=== PATIENT | male | born 1995 | race Caucasian/White ===

== ENCOUNTER 2021-01-07 20:33 | Observation (INO) | payer OTHER, SELFPAY ==
[2021-01-07] VITALS (10 sets, daily range): BP systolic 134–167; BP diastolic 83–102; PULSE 86–115; RESP 17–19; TEMP 36.7–36.8; O2SAT 96–100
--- NOTE | ~2021-01-07 | CT_ITS ---
EXAMINATION: CT abdomen pelvis w con INDICATION: Epigastric pain TECHNIQUE: Computed tomographic images of the abdomen and pelvis were obtained after the administrati on of 100 cc of Omnipaque 350 intravenous contrast. The dose-length product (DLP) was 1730.56 mGy-cm. Automated exposure control and iterative reconstruction technique were employed. COMPARISON: None available FINDINGS: Minimal dependent atelectasis is present in the lung bases. The heart size is normal. The l iver is diffusely low in attenuation when compared with the spleen, consistent with hepatic steatosis . The spleen, pancreas, gallbladder, and adrenal glands are normal. There is a moderate volume of per ipancreatic fluid. Fluid is also seen along the second portion of the duodenum. The kidneys are unrem arkable. No pathologically enlarged abdominal or pelvic lymph nodes are identified. There is no free intraperitoneal gas or evidence of bowel obstruction. There are changes of anterior and posterior fus ion at L5-S1. IMPRESSION: 1. Moderate volume of peripancreatic retroperitoneal fluid, consistent with acute pancreatitis. Reviewed, dictated and finalized at location A. IMPRESSION: 1. Moderate volume of peripancreatic retroperitoneal fluid, consistent with acu te pancreatitis.
--- NOTE | ~2021-01-07 | US_ITS ---
EXAMINATION: US abdomen limited DATE: 01/09/2021 10:05 INDICATION: Pancreatitis, epigastric abdominal pain TECHNIQUE: Multiple grayscale and Doppler ultrasound images of the abdomen were obtained. COMPARISON: None available FINDINGS: Bowel gas obscures visualization of the pancreas. The visualized portions of the pancreas a re unremarkable. The liver demonstrates increased echogenicity, heterogenous echotexture, and decreas ed through transmission. No surface nodularity. Normal hepatopetal flow in the main portal vein. The gallbladder is normal with no abnormal wall thickening, pericholecystic fluid or stones. The normal c ommon bile duct measures 5 mm. There was no sonographic Flowers sign although sensitivity can be decre ased by pain medication. IMPRESSION: 1. Diffuse hepatic steatosis. Reviewed, dictated and finalized at location A.
[2021-01-07 21:10] LABS: Hematocrit 50.5 % (42.0-52.0); Hemoglobin 15.9 g/dL (14.0-18.0); Mean Corpuscular HGB Conc 31.5 g/dl (32-36); Mean Corpuscular Hemoglobin 24.9 pg (26-34); Mean Corpuscular Volume 79.2 fl (80-100); Mean Platelet Volume 10.4 fl (7.4-10.4); Platelet Count Result 442 k/mm3 (150-375); Red Blood Count 6.38 M/mm3 (4.6-6.20); Red Cell Distribution Width 15.2 % (11.5-14.5); White Blood Count 20.3 K/mm3 (4.5-10.0)
[2021-01-07 21:13] LABS: Add Urine Microscopic? NO; Appearance Urine Clear (Clear); Bilirubin Urine Negative (Negative); Blood Urine Negative (Negative); Color Urine Yellow (Yellow); Glucose Urine UA Negative (Negative); Ketones Urine Negative (Negative); Leukocyte Esterase Ur Negative LEU/UL (Negative); Nitrate Urine Negative (Negative); Protein Urine Negative (Negative); Specific Grav Ur 1.011 (1.001-1.035); Urobilinogen Urine Negative mg/dL (<2.0)
[2021-01-07 21:29] LABS: Eosinophils Percent Manual 1 % (0-4); Lymphocytes Absolute Manual 4.87 K/mm3 (1.1-4.5); Monocytes Absolute Manual 1.42 K/mm3 (0.1-0.90); Monocytes Percent Manual 7 % (3-9); Neutrophils Percent Manual 68 % (46-73); Platelet Estimate Increased (Adequate); Total Cells Counted 100
[2021-01-07 21:30] LABS: Anisocytosis 1+ (NORMAL); Hypochromasia 1+ (NORMAL)
[2021-01-07] MEDS: MORPHINE SULFATE (*CRX) 4 MG/ML INJ IV PUSH (21:35)
[2021-01-07] MEDS: SODIUM CHLORIDE 0.9% IV 1,000 ML 999 ML IV CONT ×2 (21:35→22:37)
[2021-01-07] MEDS: ONDANSETRON INJ 4 MG/2 ML VIAL IV PUSH (21:35)
[2021-01-07 21:39] LABS: Alanine Aminotransferase 55 U/L (4-50); Albumin Level 4.3 g/dL (3.5-5.1); Alkaline Phosphatase 62 U/L (38-126); Anion Gap 10 mmol/L (8-16); Aspartate Amino Transferase 36 U/L (17-59); Bilirubin,Total 0.4 mg/dL (0.2-1.3); Blood Urea Nitrogen 18 mg/dL (9-20); Calcium 9.3 mg/dL (8.4-10.2); Carbon Dioxide 27 mmol/L (22-30); Chloride 101 mmol/L (98-107); Estimated CRCL calculation 128 ml/min; Estimated Glomerular Filt Rate > 60; Glucose 120 mg/dL (75-110); Potassium 4.4 mmol/L (3.4-5.0); Sodium 138 mmol/L (137-145)
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
[2021-01-07 21:51] LABS: Lipase 2051 U/L (23-300)
[2021-01-07] MEDS: HYDROmorphone HCL INJ (*CRX) 1 MG/ML SYR IV PUSH (22:37)
[2021-01-08 00:05] VITALS: BP 153/88; PULSE 92; RESP 18; TEMP 36.4; O2SAT 100; BMI 40.3
--- NOTE | 2021-01-08 00:07 | ADMGEN ---
This patient, Joshua Henry, was admitted to [facility] Surg Room 303-01. Patient/family oriented to hospital policies and general routines including ID bracelet, bed and alarms, visiting hours, pain management, procedures, bathroom and other care routines, personal items, smoking policy, room service/diet, and visiting hours. Information on how to activate the Rapid Response Team has been discussed. Patient/Family are encouraged to report perceived risks to care and to ask questions if they do not understand what they are told or what they should do.
[2021-01-08] MEDS: SODIUM CHLORIDE 0.9% IV 1,000 ML 200 ML IV CONT ×5 (00:29→21:25)
[2021-01-08] MEDS: MORPHINE SULFATE (*CRX) 4 MG/ML INJ IV PUSH (00:30)
[2021-01-08] MEDS: HYDROmorphone HCL INJ (*CRX) 1 MG/ML SYR IV PUSH (03:46)
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
[2021-01-08] MEDS: METOPROLOL TARTRATE INJ 5 MG/5 ML VIAL IV PUSH ×2 (05:55→10:55)
[2021-01-08 06:00] VITALS: BP 146/74; PULSE 81; RESP 18; TEMP 37.1; O2SAT 99
[2021-01-08 06:14] LABS: Hemoglobin 13.6 g/dL (14.0-18.0); Mean Corpuscular HGB Conc 31.6 g/dl (32-36); Mean Corpuscular Volume 78.9 fl (80-100); Mean Platelet Volume 10.4 fl (7.4-10.4); Platelet Count Result 362 k/mm3 (150-375); Red Blood Count 5.45 M/mm3 (4.6-6.20); Red Cell Distribution Width 14.2 % (11.5-14.5); White Blood Count 12.9 K/mm3 (4.5-10.0)
[2021-01-08 06:27] LABS: Cholesterol 151 mg/dL (0-200); HDL Direct 29 mg/dL; Triglycerides 96 mg/dL (<150)
[2021-01-08 06:28] LABS: Alanine Aminotransferase 43 U/L (4-50); Albumin Level 3.8 g/dL (3.5-5.1); Alkaline Phosphatase 56 U/L (38-126); Anion Gap 7 mmol/L (8-16); Aspartate Amino Transferase 26 U/L (17-59); Bilirubin,Total 0.5 mg/dL (0.2-1.3); Blood Urea Nitrogen 14 mg/dL (9-20); Calcium 8.4 mg/dL (8.4-10.2); Carbon Dioxide 27 mmol/L (22-30); Chloride 104 mmol/L (98-107); Estimated CRCL calculation 140 ml/min; Estimated Glomerular Filt Rate > 60; Glucose 109 mg/dL (75-110); Lipase 954 U/L (23-300); Potassium 4.1 mmol/L (3.4-5.0); Sodium 138 mmol/L (137-145)
[2021-01-08 06:30] LABS: Triglycerides 98 mg/dL (<150)
[2021-01-08 06:38] LABS: LDL Cholesterol Direct 100 mg/dL
[2021-01-08 07:54] VITALS: O2SAT 93
[2021-01-08] MEDS: ENOXAPARIN 40 MG/0.4 ML SYRINGE SUB-Q (08:30)
[2021-01-08 10:55] VITALS: PULSE 92
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
[2021-01-08] MEDS: BACLOFEN 10 MG TABLET 20 MG PO ×2 (13:36→21:27)
[2021-01-08] MEDS: GABAPENTIN 300 MG CAPSULE PO (13:36)
[2021-01-08 14:00] VITALS: BP 139/75; PULSE 94; RESP 16; TEMP 36.2; O2SAT 98
[2021-01-08] MEDS: GABAPENTIN 300 MG CAPSULE 900 MG PO ×2 (14:14→21:26)
[2021-01-08 15:55] LABS: Lipase 610 U/L (23-300)
[2021-01-08] MEDS: lisinopriL 20 MG TABLET 40 MG PO (16:31)
[2021-01-08 22:00] VITALS: BP 149/72; PULSE 108; RESP 20; TEMP 36.7; O2SAT 97
[2021-01-09] MEDS: SODIUM CHLORIDE 0.9% IV 1,000 ML 200 ML IV CONT (03:27)
[2021-01-09] MEDS: BACLOFEN 10 MG TABLET 20 MG PO ×2 (05:47→13:12)
[2021-01-09 06:00] VITALS: BP 142/78; PULSE 88; RESP 20; TEMP 36.8; O2SAT 98
[2021-01-09 06:06] LABS: Basophils Percent Auto 0.3 % (0.2-1.2); Eosinophils Absolute Auto 0.4 K/mm3 (0-0.3); Eosinophils Percent Auto 3.4 % (0-4.4); Hematocrit 39.9 % (42.0-52.0); Hemoglobin 12.6 g/dL (14.0-18.0); Immature Granulocyte Absolute 0.04 K/mm3 (0.00-0.031); Immature Granulocyte Percent A 0.4 % (0-0.5); Lymphocytes Absolute Auto 2.03 K/mm3 (0.9-3.2); Mean Corpuscular HGB Conc 31.6 g/dl (32-36); Mean Corpuscular Hemoglobin 25.1 pg (26-34); Mean Corpuscular Volume 79.5 fl (80-100); Mean Platelet Volume 10.4 fl (7.4-10.4); Monocytes Absolute Auto 1.4 K/mm3 (0.1-0.6); Monocytes Percent Auto 12.3 % (2.6-8.5); Neutrophils Absolute Auto 7.4 K/mm3 (1.3-6.7); Neutrophils Percent Auto 65.6 % (45.5-73.1); Platelet Count Result 320 k/mm3 (150-375); Red Blood Count 5.02 M/mm3 (4.6-6.20); Red Cell Distribution Width 14.3 % (11.5-14.5); White Blood Count 11.3 K/mm3 (4.5-10.0)
[2021-01-09 06:23] LABS: Anion Gap 10 mmol/L (8-16); Blood Urea Nitrogen 12 mg/dL (9-20); Calcium 8.6 mg/dL (8.4-10.2); Carbon Dioxide 23 mmol/L (22-30); Chloride 103 mmol/L (98-107); Estimated CRCL calculation 155 ml/min; Estimated Glomerular Filt Rate > 60; Glucose 88 mg/dL (75-110); Lipase 279 U/L (23-300); Potassium 3.8 mmol/L (3.4-5.0); Sodium 136 mmol/L (137-145)
[2021-01-09] MEDS: SODIUM CHLORIDE 0.9% IV 1,000 ML 100 ML IV CONT (08:37)
[2021-01-09] MEDS: lisinopriL 20 MG TABLET 40 MG PO (10:38)
[2021-01-09] MEDS: ENOXAPARIN 40 MG/0.4 ML SYRINGE SUB-Q (10:38)
--- NOTE | 2021-01-09 11:56 | PM.IMPN ---
Subjective Date/time seen: 01/09/21 11:56 Objective Data Vital Signs Vital Signs: Vital Signs - 24 hr 01/08/21 14:00 01/08/21 22:00 01/09/21 06:00 Temperature 36.2 C L 36.7 C 36.8 C Pulse Rate 94 108 H 88 Respiratory Rate 16 20 20 Blood Pressure 139/75 149/72 H 142/78 H Pulse Oximetry 98 97 98 Intake/Output Intake/Output: Intake & Output 01/06/21 01/07/21 01/08/21 01/09/21 23:59 23:59 23:59 23:59 Intake Total 1999 4360 2120 Balance 1999 4360 2120 Meds/Results Medications: Active Medications Generic Name Dose Route Start Last Admin Trade Name Freq PRN Reason Stop Dose Admin Albuterol 2 puff 01/08/21 12:00 Albuterol Sulfate (*Sp) Aerosol 1 Puff INHALATION Q6H PRN Shortness Of Breath Amitriptyline HCl 25 mg 01/09/21 09:00 01/09/21 10:45 Amitriptyline Hcl 25 Mg Tablet PO Not Given DAILY QIAN Baclofen 20 mg 01/08/21 14:00 01/09/21 05:47 Baclofen 10 Mg Tablet PO 20 mg Q8HR QIAN Administration Budesonide 1 puff 01/08/21 08:00 01/09/21 10:36 Budesonide 90 Mcg/Puff Flexhaler INHALATION 1 puff Q12HRT QIAN Administration Enoxaparin Sodium 40 mg 01/08/21 09:00 01/09/21 10:38 Enoxaparin 40 Mg/0.4 Ml Syringe SUB-Q 40 mg DAILY QIAN Administration Gabapentin 900 mg 01/08/21 14:05 01/09/21 08:04 Gabapentin 300 Mg Capsule PO Not Given Q8HR QIAN Hydromorphone HCl 1 mg 01/08/21 03:23 01/08/21 03:46 Hydromorphone Hcl Inj (*Crx) 1 Mg/Ml Syr IV PUSH 1 mg Q3H PRN Administration Pain Rated 7-10 Sodium Chloride 1,000 mls @ 100 mls/hr 01/07/21 23:35 01/09/21 08:37 Normal Saline Iv IV CONT 100 mls/hr .Q10H QIAN Administration Lisinopril 40 mg 01/08/21 15:20 07/05/21 10:38 Lisinopril 20 Mg Tablet PO 40 mg DAILY QIAN Administration Ondansetron HCl 4 mg 01/07/21 23:32 Ondansetron Inj 4 Mg/2 Ml Vial IV PUSH Q4H PRN Nausea Sumatriptan Succinate 50 mg 01/09/21 09:00 Sumatriptan Succinate 25 Mg Tablet PO DAILY PRN Migraine Headache Radiology Results: ITS Impressions Abdomen/Pelvis CT 01/08/21 09:25 IMPRESSION: 1. Moderate volume of peripancreatic retroperitoneal fluid, consistent with acute pancreatitis. Labs Labs: Laboratory Results - last 24 hr 01/08/21 01/09/21 01/09/21 15:30 05:28 05:28 WBC 11.3 H RBC 5.02 Hgb 12.6 L Hct 39.9 L MCV 79.5 L MCH 25.1 L MCHC 31.6 L RDW 14.3 Plt Count 320 MPV 10.4 Immature Gran % (Auto) 0.4 Neut % (Auto) 65.6 Lymph % (Auto) 18.0 L Tyler % (Auto) 12.3 H Eos % (Auto) 3.4 Baso % (Auto) 0.3 Lymph # (Auto) 2.03 Tyler # (Auto) 1.4 H Eos # (Auto) 0.4 H Baso # (Auto) 0.0 Abs Immat Gran (auto) 0.04 H Absolute Neuts (auto) 7.4 H Absolute Nucleated RBC 0.0 Nucleated RBC % 0.0 Sodium 136 L Potassium 3.8 Chloride 103 Carbon Dioxide 23 Anion Gap 10 BUN 12 Creatinine 0.90 Estim Creat Clear Calc 155 Estimated GFR > 60 Glucose 88 Calcium 8.6 Lipase 610 H 279 Quality VTE Prophylaxis VTE prophylaxis: pharmacologic ordered ( Lovenox 40 mg subq daily.)
[2021-01-09] MEDS: GABAPENTIN 300 MG CAPSULE 900 MG PO (13:12)
[2021-01-09 14:00] VITALS: BP 146/94; PULSE 100; RESP 20; TEMP 36.5; O2SAT 99
[2021-01-09 14:26] LABS: Lipase 167 U/L (23-300)
--- NOTE | 2021-01-09 15:29 | PM.DS ---
DS: Admitting Diagnosis Admitting Diagnosis Admitting Diagnosis: pancreatitis DS: Discharge Diagnosis Discharge Diagnosis (1) Acute pancreatitis: Code(s): K85.90 - Acute pancreatitis without necrosis or infection, unspecified Status: Acute Assessment and Plan: pancreatitis uncertain etiology. Lipid /trigylcerides WNL diagnositics show pancreatitis evidence. patient was in NPO status, slowly advanced diet and he tolerated clears as well as soft bland diet continue aggressive IV fluid hydration for the 1st 24-48 hours with fluids running at 200 mL an hour. Then will reduced fluid rate this morning. Lipase level dropped from 2050, to 954, to 610, to todays values of 279 and 167 and that was after 2 meals . Pain medications as needed with Dilaudid 1 mg q.3 hours. The patient has high tolerance to pain medications as he is on multiple neuro cot X, muscle relaxers and neuropathic medications at home. he was NPO status yesterday, and tolerated foods today discharged and expected to follow up with his primary care provider also instructed to stay away from alcohol, fatty foods, marijuana, and noted that indomethacin has a moderate risk for causing pancreatitis US abdomen limited DATE: 01/09/2021 10:05 FINDINGS: Bowel gas obscures visualization of the pancreas. The visualized portions of the pancreas are unremarkable. The liver demonstrates increased echogenicity, heterogenous echotexture, and decreased through transmission. No surface nodularity. Normal hepatopetal flow in the main portal vein. The gallbladder is normal with no abnormal wall thickening, pericholecystic fluid or stones. The normal common bile duct measures 5 mm. There was no sonographic Flowers sign although sensitivity can be decreased by pain medication. IMPRESSION: 1. Diffuse hepatic steatosis. (2) Essential hypertension: Code(s): I10 - Essential (primary) hypertension Status: Inactive Assessment and Plan: The patient's blood pressure was slightly elevated at admission yesterday, likely due to pain. The patient's home lisinopril restarted Blood pressure is controlled today BP 139/75 - 149/72 with pulse 88-108 (3) Obesity: Qualifiers: Body mass index: BMI 40.0-44.9 Obesity classification: adult class 3 (BMI >= 40) Obesity type: due to excess calories Serious obesity comorbidity presence: with serious comorbidity Qualified Code(s): E66.01 - Morbid (severe) obesity due to excess calories; Z68.41 - Body mass index [BMI]40.0-44.9, adult Code(s): E66.9 - Obesity, unspecified Status: Inactive Assessment and Plan: Patient would benefit from diet and lifestyle modification. education completed He denies excessive daytime sleepiness or somnolence. Will monitor for symptoms. apnea in link not needed (4) Hepatic steatosis: Code(s): K76.0 - Fatty (change of) liver, not elsewhere classified Status: Acute Assessment and Plan: found on ultrasound of abdomen completed today Diffuse hepatic steatosis patient discharged with Education DS: Summary Hospital Course Hospital Course: admitted started on IV hydration, NPO for GI rest, lipase levels noted to drop, slowly advanced diet to low-fat soft bland foods, recheck lipase and found normal, ultrasound showed no further concerns, patient was discharged with expected follow-up visits to PCP Time Spent with Patient Time attestation: Total time spent providing and/or coordinating discharge services: 45 minutes Exam Narrative: Exam Narrative: PHYSICAL EXAM: WEIGHT 131 kg BMI 40.3 General: morbidly obese, no acute distress, appears stated age HEENT: large neck circumference, crowded posterior oropharynx, no oral pharyngeal erythema, pupils are equal and reactive Respiratory: clear to auscultation bilaterally, no increased work of breathing Cardiovascular: regular rate, regular rhythm, no murmurs, 2+
== END 2021-01-09 17:00 | disposition home or self-care (01) ==
LOC: ANHED 21:14 → ANH3MEDSUR 23:52
PROVIDERS: Nurse Practitioner; Admitting Provider Internal Medicine; Emergency Provider Emergency Medicine; PCP Family Medicine; Visit Provider Internal Medicine
DX: K85.90 Acute pancreatitis without necrosis or infection, unspecified (principal); J45.909 Unspecified asthma, uncomplicated; I10 Essential (primary) hypertension; M54.2 Cervicalgia; M54.40 Lumbago with sciatica, unspecified side; G89.29 Other chronic pain; E66.9 Obesity, unspecified; Z98.1 Arthrodesis status; Z68.41 Body mass index [BMI] 40.0-44.9, adult
CPT/HCPCS: 36415; 74177; 76705; 80048; 80053; 80061; 81003; 83690; 84478; 85025; 85027; 94640; 96360; 96361; 96372; 96374; 96375; 96376; 99285; A9270; G0378; J1170; J1650; J2270; J2405; J7030; Q9967